=== PATIENT | female | born 1970 ===

== ENCOUNTER 2018-10-20 07:41 | Outpatient (CLI) | payer OTHER | END 2018-10-20 07:42 | disposition home or self-care (01) | LOC: C.USIC 07:42 | DX: R10.13 Epigastric pain (principal) ==

== ENCOUNTER 2018-12-15 12:36 | Outpatient (CLI) | payer OTHER | END 2018-12-15 12:37 | disposition home or self-care (01) | LOC: C.RADH 12:36 | DX: G57.53 Tarsal tunnel syndrome, bilateral lower limbs (principal) ==